=== PATIENT | male | born 1965 | race Caucasian/White ===

== ENCOUNTER → 2017-07-12 | Outpatient (CLI) | payer BC | LOC: GMAJ 12:57 | PROVIDERS: ATTEND Family Medicine | DX: Z00.00 Encounter for general adult medical examination without abnormal findings (principal) ==

== ENCOUNTER → 2018-07-11 | Outpatient (CLI) | payer BC | LOC: GMAH 14:58 | PROVIDERS: ATTEND Nurse Practitioner Family | DX: I10 Essential (primary) hypertension (principal) ==

== ENCOUNTER → 2019-11-16 | Outpatient (CLI) | payer BC ==
--- NOTE | 2019-11-16 10:51 | RAD ---
EXAM DESCRIPTION: KUB CLINICAL HISTORY: RIGHT FLANK PAIN COMPARISON: None. IMPRESSION: Single AP supine view of the abdomen obtained on 2 radiographs shows a nonspecific, nonobstructive bowel gas pattern. No air-filled dilated loops of small bowel are seen. No abnormal calcifications are seen in the expected location of the kidneys or ureters. Osseous structures are unremarkable. Electronically signed by: Dimas Martins MD 11/16/2019 10:49 AM CDT
== END ==
LOC: RAD 10:24
PROVIDERS: ATTEND Nurse Practitioner Family
DX: R10.9 Unspecified abdominal pain (principal)